=== PATIENT | male | born 1995 | race Caucasian/White ===

== ENCOUNTER 2024-09-22 22:02 | Emergency (ER) | payer BC ==
[2024-09-22 23:21] LABS: BASOPHILS ABSOLUTE AUTO 0.03 K/uL (0.00-0.20); BASOPHILS PERCENT AUTO 0.4 % (0.0-1.0); EOSINOPHILS ABSOLUTE AUTO 0.06 K/uL (0.00-0.45); EOSINOPHILS PERCENT AUTO 0.8 % (0.0-6.0); HEMATOCRIT 48.7 % (42.0-52.0); IMMATURE GRAN ABSOLUTE AUTO 0.02 K/uL (0.00-0.05); IMMATURE GRAN PERCENT AUTO 0.3 % (0.0-0.4); LYMPHOCYTES ABSOLUTE AUTO 2.39 K/uL (1.00-4.80); LYMPHOCYTES PERCENT AUTO 30.1 % (24.0-44.0); MEAN CORPUSCULAR HEMOGLOBIN 31.2 pg (28.0-32.0); MEAN CORPUSCULAR HGB CONC 34.9 g/dL (32.0-36.0); MEAN CORPUSCULAR VOLUME 89.4 fL (83.0-99.0); MEAN PLATELET VOLUME 10.3 fL (9.4-12.4); MONOCYTES ABSOLUTE AUTO 0.41 K/uL (0.00-0.80); MONOCYTES PERCENT AUTO 5.2 % (0.0-8.0); NEUTROPHILS ABSOLUTE AUTO 5.02 K/uL (1.80-7.70); NEUTROPHILS PERCENT AUTO 63.2 % (41.0-71.0); PLATELET COUNT,PLT 199 K/uL (150-400); RED BLOOD CELL COUNT 5.45 M/uL (4.52-5.90); WHITE BLOOD CELL COUNT,WBC 7.93 K/uL (3.9-11.3)
[2024-09-22 23:41] LABS: A/G RATIO 1.2 (0.9-1.6); ALBUMIN 4.3 g/dL (3.4-5.0); BILIRUBIN TOTAL 0.6 mg/dL (0.2-1.0); CALCIUM 9.1 mg/dL (8.5-10.1); CARBON DIOXIDE,CO2 28.3 mmol/L (21.0-32.0); CREATININE 1.3 mg/dL (0.8-1.3); EST CRCL DRUG DOSING (CG) 77.68 mL/min; POTASSIUM,K 3.4 mmol/L (3.5-5.1); PROTEIN TOTAL,TP 7.9 g/dL (6.4-8.2)
== END 2024-09-23 02:00 | disposition home or self-care (01) ==
LOC: MW.ED 22:02
DX: K85.90 Acute pancreatitis without necrosis or infection, unspecified (principal); K80.50 Calculus of bile duct without cholangitis or cholecystitis without obstruction
CPT/HCPCS: 36415; 76705; 76705-26; 80053; 83690; 85025; 99284

== ENCOUNTER 2024-10-31 06:36 | Day surgery (SDC) | payer BC ==
[~2024-10-31 06:36] MED LIST: Acetaminophen 1,000 MG in Premix Bag 1 BAG IV SCH; ceFAZolin 2 GM in Sodium Chloride 0.9% 50 ML IV ONE
[2024-10-31] MEDS: Scopalamine 1mg/3day Transdermal Patch TOP ONE (06:45)
[2024-10-31] MEDS: Pregabalin 75 MG Cap PO SCH (06:45)
[2024-10-31] MEDS ORDERED: Bupivacaine 0.25% 30 ML SDV ONE (07:13)
[2024-10-31] MEDS: Lactated Ringers 1,000 ML IV SCH (07:19)
[2024-10-31] MEDS ORDERED: Morphine 10 MG/ML SDV ONE (07:29)
[2024-10-31] MEDS ORDERED: fentaNYL 100 MCG/2 ML SDV ONE (07:29)
[2024-10-31] MEDS ORDERED: Propofol 200 MG/20 ML SDV ONE (07:29)
[2024-10-31] MEDS ORDERED: Midazolam 1 MG/ML 2 ML SDV ONE (07:29)
[2024-10-31] MEDS ORDERED: Lidocaine 1% 5 ML VIAL ONE (07:31)
[2024-10-31] MEDS ORDERED: Ondansetron 4 MG/2 ML SDV ONE (07:31)
[2024-10-31] MEDS ORDERED: Rocuronium Bromide 50 MG/5 ML Syringe ONE ×2 (07:31→07:46)
[2024-10-31] MEDS ORDERED: Dexamethasone 4 MG/ML 5 ML MDV ONE (07:31)
[2024-10-31] MEDS ORDERED: Ropivacaine 0.5% 5 MG/ML 30 ML SDV ONE (07:35)
[2024-10-31] MEDS ORDERED: Metoclopramide 10 MG/2 ML SDV IVPUSH PRN (07:38)
[2024-10-31] MEDS ORDERED: Ondansetron 4 MG/2 ML SDV IVPUSH PRN (07:38)
[2024-10-31] MEDS ORDERED: Morphine 2 MG/ML SYRINGE IVPUSH PRN (07:38)
[2024-10-31] MEDS ORDERED: fentaNYL 50 MCG/ML SDV IVPUSH PRN (07:38)
[2024-10-31] MEDS ORDERED: Naloxone 0.4 MG/ML SDV IVPUSH PRN (07:38)
[2024-10-31] MEDS ORDERED: Phenylephrine HCl In 0.9% NaCl 1 MG/10 ML Syringe IVPUSH PRN (07:38)
[2024-10-31] MEDS ORDERED: Albuterol 0.083% 2.5 MG/3 ML Neb Soln NEB PRN (07:38)
[2024-10-31] MEDS ORDERED: Sodium Chloride 0.9% 20 ML ONE (07:44)
[2024-10-31] MEDS ORDERED: ceFAZolin 2 GM Vial ONE (07:55)
[2024-10-31] MEDS ORDERED: Sugammadex Sodium 200 MG/2 ML VIAL IV ONE (08:11)
[2024-10-31] MEDS ORDERED: Ketorolac 30 MG/ML SDV ONE (08:11)
[2024-10-31] MEDS ORDERED: Phenylephrine HCl In 0.9% NaCl 1 MG/10 ML Syringe ONE (08:30)
[2024-10-31] MEDS ORDERED: Glycopyrrolate 0.2 MG/ML SDV ONE (08:30)
[2024-10-31] MEDS: HYDROmorphone 1 MG/ML Syringe IVPUSH PRN (10:01)
[2024-10-31] MEDS: Acetaminophen/HYDROcodone 325-5 MG Tab PO ONE (11:38)
== END 2024-10-31 11:52 | disposition home or self-care (01) ==
LOC: MW.SDS 06:36
PROVIDERS: ATTEND Surgery
DX: K80.10 Calculus of gallbladder with chronic cholecystitis without obstruction (principal); F17.290 Nicotine dependence, other tobacco product, uncomplicated
CPT/HCPCS: 47562; 64488; A9270; J0131; J0665; J0690; J1100; J1171; J1596; J1885; J2250; J2272; J2371; J2405; J2704; J2795; J3010; J7120; 00790; 01810; 64486; J3490